=== PATIENT | male | born 1950 | race Caucasian/White ===

== ENCOUNTER → 2017-06-14 | Outpatient (CLI) | payer BC, MEDICARE ==
[2017-06-14 10:11] LABS: ALANINE AMINOTRANSFERASE 20 U/L (21-72); ANION GAP 13 (5-19); BLOOD UREA NITROGEN 14 mg/dL (7-20); CALCIUM 9.4 mg/dL (8.4-10.2); CARBON DIOXIDE 24 mmol/L (22-30); CHLORIDE 107 mmol/L (98-107); CREATININE RESULT 1.11 mg/dL (0.52-1.25); GLUCOSE 98 mg/dL (75-110); POTASSIUM 4.6 mmol/L (3.6-5.0)
[2017-06-14 10:42] LABS: CHOLESTEROL 153.72 mg/dL (0-200); Direct HDL 46 mg/dL (>40); TRIGLYCERIDES 97 mg/dL (<150)
[2017-06-14 10:53] LABS: DIRECT LDL 87 mg/dL (<100)
== END ==
LOC: OD 08:17
PROVIDERS: ATTEND Family Medicine
DX: E78.2 Mixed hyperlipidemia (principal); I10 Essential (primary) hypertension; Z12.5 Encounter for screening for malignant neoplasm of prostate; Z79.899 Other long term (current) drug therapy
CPT/HCPCS: 36415; 84460; 84443; 80048; 83036; 80061; G0103

== ENCOUNTER → 2019-03-13 | Outpatient (CLI) | payer MEDICARE, OTHER ==
[2019-03-13 10:26] LABS: ALANINE AMINOTRANSFERASE 16 U/L (21-72); ALBUMIN 4.1 g/dL (3.5-5.0); ALKALINE PHOSPHATASE 53 U/L (38-126); ANION GAP 10 (5-19); ASPARTATE AMINO TRANSFERASE 16 U/L (17-59); BILIRUBIN,DIRECT 0.4 mg/dL (0.0-0.4); BLOOD UREA NITROGEN 16 mg/dL (7-20); CALCIUM 9.6 mg/dL (8.4-10.2); CARBON DIOXIDE 24 mmol/L (22-30); CHLORIDE 106 mmol/L (98-107); CHOLESTEROL 135.34 mg/dL (0-200); GLUCOSE 108 mg/dL (75-110); POTASSIUM 4.8 mmol/L (3.6-5.0); TOTAL PROTEIN 7.2 g/dL (6.3-8.2); TRIGLYCERIDES 100 mg/dL (<150)
[2019-03-13 10:37] LABS: DIRECT LDL 78 mg/dL (<100)
== END ==
LOC: OD 08:48
PROVIDERS: ATTEND Family Medicine
DX: E78.2 Mixed hyperlipidemia (principal); I10 Essential (primary) hypertension; Z79.899 Other long term (current) drug therapy; R39.12 Poor urinary stream; R35.1 Nocturia
CPT/HCPCS: 36415; 80048; 80061; 80076; 83036; 84153; 84443

== ENCOUNTER → 2020-03-19 | Outpatient (CLI) | payer MEDICARE, OTHER ==
[2020-03-19 10:42] LABS: ALBUMIN 4.2 g/dL (3.5-5.0); ALKALINE PHOSPHATASE 48 U/L (38-126); ANION GAP 7 (5-19); ASPARTATE AMINO TRANSFERASE 19 U/L (17-59); BILIRUBIN,DIRECT 0.1 mg/dL (0.0-0.4); BILIRUBIN,TOTAL 0.8 mg/dL (0.2-1.3); BLOOD UREA NITROGEN 14 mg/dL (7-20); CALCIUM 9.5 mg/dL (8.4-10.2); CARBON DIOXIDE 24 mmol/L (22-30); CHLORIDE 107 mmol/L (98-107); CHOLESTEROL 148.79 mg/dL (0-200); GLUCOSE 102 mg/dL (75-110); POTASSIUM 4.3 mmol/L (3.6-5.0); TOTAL PROTEIN 7.3 g/dL (6.3-8.2); TRIGLYCERIDES 134 mg/dL (<150)
[2020-03-19 11:00] LABS: DIRECT LDL 93 mg/dL (<100)
== END ==
LOC: OD 08:48
PROVIDERS: ATTEND Family Medicine
DX: E78.2 Mixed hyperlipidemia (principal); I10 Essential (primary) hypertension; R35.1 Nocturia; R39.12 Poor urinary stream; Z79.899 Other long term (current) drug therapy
CPT/HCPCS: 36415; 80048; 80061; 80076; 83036; 84153; 84443

== ENCOUNTER 2020-05-20 11:24 | Day surgery (SDC) | payer MEDICARE, OTHER ==
[2020-05-20 12:40] LABS: INTERNATIONAL RATION (INR) 0.99; PROTHROMBIN TIME 13.3 SEC (11.4-15.4)
[2020-05-20 12:41] LABS: HEMATOCRIT 43.1 % (37.9-51.0); HEMOGLOBIN 14.5 g/dL (13.5-17.0); MEAN CORPUSCULAR HEMOGLOBIN 29.6 pg (27.0-33.4); MEAN CORPUSCULAR HGB CONC 33.7 g/dL (32.0-36.0); MEAN CORPUSCULAR VOLUME 88 fl (80-97); PARTIAL THROMBOPLASTIN TIME 34.2 SEC (23.5-35.8); PLATELET COUNT 459 10^3/uL (150-450); RED BLOOD COUNT 4.91 10^6/uL (4.35-5.55); RED CELL DISTRIBUTION WIDTH 13.5 % (11.5-14.0); WHITE BLOOD COUNT 17.6 10^3/uL (4.0-10.5)
[2020-05-20 13:05] LABS: BLOOD UREA NITROGEN 16 mg/dL (7-20)
--- NOTE | 2020-05-20 14:36 | RADIOLOGY REPORT (SQ) ---
EXAM DESCRIPTION: U/S THORACENTESIS WITH IMAGING IMAGES COMPLETED DATE/TIME: 05/20/2020 1:58 pm REASON FOR STUDY: PLEURAL EFFUSION J90 PLEURAL EFFUSION, NOT ELSEWHERE CLASSIFIED Z79.01 LONG-TERM (CURRENT) USE OF ANTICOAGULANTS Z79.899 OTHER LONG-TERM (CURRENT) DRUG THERAPY COMPARISON: 05/10/2020 thoracentesis. RADIATION DOSE: None LIMITATIONS: None. PROCEDURE: Procedure, risks, benefit, and alternative explained to patient who then gave written con sent. The posterior right chest wall was marked using ultrasound guidance. A time-out was called fo r correct marking verification. Chest prepped and draped using sterile technique. Local anesthesia a chieved using 7 ml of 1% lidocaine injection. A 6fr Safe-T- Centesis set was introduced into the rig ht pleural space. Fluid was aspirated. The catheter was removed and the entry site was covered with sterile bandage. No immediate complications noted. Images acquired during the procedure were stored on PACS. FINDINGS: ENTRY SITE: posterior right chest. FLUID VOLUME: 1000 mL FLUID ANALYSIS: Pat colored fluid OTHER: Therapeutic only IMPRESSION: SUCCESSFUL THORACENTESIS USING ULTRASOUND GUIDANCE. COMMENT: Patient medication list reviewed: Yes- Quality ID# [id number]:Eligible professional attests to doc umenting in the medical record they obtained, updated, or reviewed the patient's current medications. TECHNICAL DOCUMENTATION: JOB ID: [id number] [employer]- All Rights Reserved Reading location - IP/workstation name: [email or web address] [id number]
--- NOTE | 2020-05-20 15:49 | RADIOLOGY REPORT (SQ) ---
EXAM DESCRIPTION: CHEST SINGLE VIEW IMAGES COMPLETED DATE/TIME: 05/20/2020 1:55 pm REASON FOR STUDY: RT PLEURAL EFFUSION POST THORA COMPARISON: 05/20/2020 thoracentesis EXAM PARAMETERS: NUMBER OF VIEWS: One view. TECHNIQUE: Single frontal radiographic view of the chest acquired. RADIATION DOSE: NA LIMITATIONS: None. FINDINGS: LUNGS AND PLEURA: Layering right-sided pleural effusion with compressive atelectasis of th e adjacent lung parenchyma. No focal consolidation. No pneumothorax. MEDIASTINUM AND HILAR STRUCTURES: No masses. Contour normal. HEART AND VASCULAR STRUCTURES: Heart normal in size. Normal vasculature. BONES: No acute findings. HARDWARE: None in the chest. OTHER: No other significant finding. IMPRESSION: No evidence of pneumothorax status post thoracentesis. Small right-sided pleural effusi on. TECHNICAL DOCUMENTATION: JOB ID: [id number] 2010 [employer]- All Rights Reserved Reading location - IP/workstation name: [email or web address]
--- NOTE | 2020-05-20 16:27 | RADIOLOGY REPORT (SQ) ---
EXAM DESCRIPTION: CHEST SINGLE VIEW IMAGES COMPLETED DATE/TIME: 05/20/2020 3:00 pm REASON FOR STUDY: RT PLEURAL EFFUSION POST THOR COMPARISON: Same date 1355 hours. EXAM PARAMETERS: NUMBER OF VIEWS: One view. TECHNIQUE: Single frontal radiographic view of the chest acquired. RADIATION DOSE: NA LIMITATIONS: None. FINDINGS: LUNGS AND PLEURA: Small right pleural effusion with compressive atelectasis at the right l monica base. The left lung is clear. No pneumothorax. MEDIASTINUM AND HILAR STRUCTURES: No masses. Contour normal. HEART AND VASCULAR STRUCTURES: Heart normal in size. Normal vasculature. BONES: No acute findings. HARDWARE: None in the chest. OTHER: No other significant finding. IMPRESSION: Stable small right pleural effusion with compressive atelectasis the right lung base. N o pneumothorax. TECHNICAL DOCUMENTATION: JOB ID: [id number] 2010 [employer]- All Rights Reserved Reading location - IP/workstation name: [id number]
[2020-05-20 17:48] VITALS: BP 140/93
== END 2020-05-20 16:35 | disposition home or self-care (01) ==
LOC: RAD 11:24
PROVIDERS: ATTEND Internal Medicine Pulmonary Disease
DX: J90 Pleural effusion, not elsewhere classified (principal); R91.8 Other nonspecific abnormal finding of lung field; J44.9 Chronic obstructive pulmonary disease, unspecified; R06.02 Shortness of breath; R09.02 Hypoxemia; Z79.899 Other long term (current) drug therapy; Z87.891 Personal history of nicotine dependence; Z99.81 Dependence on supplemental oxygen
CPT/HCPCS: 32555; 36415; 71045; 82565; 84520; 85027; 85610; 85730

== ENCOUNTER 2020-05-27 02:13 | Inpatient (IN) | payer MEDICARE, OTHER ==
[2020-05-27] MEDS ORDERED: IPRATROPIUM/ALBUTEROL 0.5-2.5 MG/3 ML AMPUL NEB ONE (02:44)
--- NOTE | 2020-05-27 02:48 | ER Document Report ---
ED Respiratory Problem - General Stated Complaint: SHORTNESS OF BREATH Time Seen by Provider: 05/27/20 02:37 Notes: Patient is a 69-year-old male that comes to the emergency department for chief complaint of difficulty breathing. He states that 4 days ago he had a thor acentesis to drain a right pleural effusion secondary to a right lung mass that he is currently being worked up for. He has a history of smoking, COPD, former smoker, on 2 L nasal cannula but he states he had to increase it to 3 L tonight because he could not breathe. He states that if he does not move he feels okay but if he tries to walk just a few feet he is completely out of breath. He mari es fever, cough, chest pain. He is not on chemotherapy or radiation yet, he is following with [facility] primary care and oncology. TRAVEL OUTSIDE OF THE [place] IN LAST 30 DAYS: No - Related Data Allergies/Adverse Reactions: No Known Allergies Allergy (Unverified 05/20/20 12:11) Past Medical History - General Information source: Patient - Social History Smoking Status: Former Smoker Frequency of alcohol use: None Drug Abuse: None Lives with: Family Family History: Reviewed & Not Pertinent - Past Medical History Cardiac Medical History: Reports: Hx Hypertension - on meds Denies: Hx Coronary Artery Disease, Hx Heart Attack Pulmonary Medical History: Reports: Hx COPD - hx pleural effusion 5 days ago Denies: Hx Asthma, Hx Bronchitis, Hx Pneumonia Neurological Medical History: Denies: Hx Cerebrovascular Accident, Hx Seizures Musculoskeletal Medical History: Denies Hx Arthritis - Immunizations Hx Diphtheria, Pertussis, Tetanus Vaccination: Yes Review of Systems - Review of Systems Constitutional: No symptoms reported EENT: No symptoms reported Cardiovascular: See HPI Respiratory: See HPI Gastrointestinal: No symptoms reported Genitourinary: No symptoms reported Male Genitourinary: No symptoms reported Musculoskeletal: No symptoms reported Skin: No symptoms reported Hematologic/Lymphatic: No symptoms reported Neurological/Psychological: No symptoms reported Physical Exam - Vital signs Vitals: Resp Pulse Ox 17 95 05/27/20 03:45 05/27/20 03:45 - Notes Notes: GENERAL: Alert, interacts well. HEAD: Normocephalic, atraumatic. EYES: Pupils equal, round, and reactive to light. Extraocular movements intact. ENT: Oral mucosa moist, tongue midline. Oropharynx unremarkable. Airway patent. NECK: Full range of motion. Supple. Trachea midline. No lymphadenopathy. LUNGS: Expiratory wheezes throughout, decreased breath sounds on the general right lung, patient becomes easily dyspneic but at rest does not appear to be in distress. No labored breathing at rest. HEART: Regular rate and rhythm. No murmur ABDOMEN: Soft, non-tender. Non-distended. EXTREMITIES: Moves all 4 extremities spontaneously. No edema, normal radial and dorsalis pedis pulses bilaterally. No cyanosis. BACK: no cervical, thoracic, lumbar midline tenderness. No saddle anesthesia, normal distal neurovascular exam. Moves all extremities in full range of motion. NEUROLOGICAL: Alert and oriented x3. Normal speech. Cranial nerves II through XI I grossly intact. Strength 5/5 in all extremities. PSYCH: Normal affect, normal mood. SKIN: Warm, dry, normal turgor. No rashes or lesions noted. Course - Re-evaluation Re-evalutation: Patient with faint expiratory wheezes, decreased breath sounds on the right at rest on his oxygen he is doing well without hypoxia or distress but he can barely move at all without significant dyspnea. He does not have a fever, he is not tachycardic. Chest x-ray shows right-sided effusion with consolidation. Laboratory work-up had a significant delay, chemistry unremarkable, troponin is not elevated, BNP is not elevated. CBC shows leukocytosis with greater than 20,000 with 2% bands. Patient has had a recent hospitalization and thoracentesis, therefore patient was covered with vancomycin and cefepime for suspected hospital-acquired [facility]. He also might have postobstructive pneumonia. In addition to this with his dyspnea on exertion he may have pulmonary embolism along with his cancer diagnosis. We have no good data on this patient, he usually is at [facility], therefore after discussion CTA will be performed. 05/27/20 CTA shows left-sided pulmonary embolus, cannot rule out small or tiny peripheral ones, no saddle emboli. Suspicious for malignancy as patient is already aware of, large pleural effusion. Patient will require hospitalization for the large pleural effusion with possible need of thoracentesis and even a drain because of recurrence, anticoagulation for pulmonary emboli. Discussed with Dr. Martinez. Discussed with patient in detail. He states understanding and agreement. I spoke with Aliya Fortune NP, patient will be accepted to telemetry observation. - Vital Signs Vital signs: Temp Pulse Resp BP Pulse Ox 98.3 F 25 H 136/77 H 96 05/27/20 04:08 05/27/20 08:02 05/27/20 08:02 05/27/20 08:02 - Laboratory Result Diagrams: 05/27/20 04:44 05/27/20 04:44 Laboratory results interpreted by me: 05/27/20 05/27/20 05/27/20 04:44 04:44 04:44 WBC 20.7 H Plt Count 481 H Seg Neuts % (Manual) 81 H Band Neutrophils % 2 L Lymphocytes % (Manual) 11 L Abs Neuts (Manual) 17.2 H NT-Pro-B Natriuret Pep 162 H Total Protein 5.9 L Albumin 3.0 L - EKG Interpretation by Me Additional EKG results interpreted by me: EKG shows sinus rhythm at a rate of 92, normal axis, QTC 441, no T wave inversions or ST segment changes in consecutive leads. Discharge - Discharge Clinical Impression: Pleural effusion, right, Dyspnea on exertion Acute pulmonary embolism Qualifiers: Pulmonary embolism type: unspecified Acute cor pulmonale presence: without acute cor pulmonale Qualified Code(s): I26.99 - Other pulmonary embolism without acute cor pulmonale Lung malignancy Qualifiers: Laterality: right Lung location: lower lobe of lung Qualified Code(s): C34.31 - Malignant neoplasm of lower lobe, right bronchus or lung Condition: Stable Disposition: ADMITTED INPATIENT Admitting Provider: Yohana (Hospitalist) Unit Admitted: Telemetry
--- NOTE | 2020-05-27 04:04 | RADIOLOGY REPORT (SQ) ---
EXAM DESCRIPTION: XR CHEST 1 VIEW COMPLETED DATE/TME: 05/27/2020 02:45 CLINICAL HISTORY: 69 years, Male, shortness of breath; dec sounds on the right COMPARISON: 05/20/2020 NUMBER OF VIEWS: One TECHNIQUE: AP view the chest LIMITATIONS: None. FINDINGS: Moderate to large right pleural effusion, increased in size compared to the prior with associated right basilar airspace opacity. The left lung is clear. Right heart border is obscured. There is no pneumothorax. Bones are unchanged. IMPRESSION: Moderate to large right pleural effusion, increased in size compared to the prior with associated airspace disease. copyright 2010 [employer]- All Rights Reserved
[2020-05-27 04:58] LABS: VENOUS BLOOD BASE EXCESS 0.1 mmol/L; VENOUS BLOOD HCO3 25.3 mmol/L (20-32); VENOUS BLOOD PCO2 42.7 mmHg (35-63); VENOUS BLOOD PH 7.39 (7.30-7.42)
[2020-05-27 05:14] LABS: ALKALINE PHOSPHATASE 73 U/L (38-126); ANION GAP 9 (5-19); ASPARTATE AMINO TRANSFERASE 19 U/L (17-59); BILIRUBIN,DIRECT 0.3 mg/dL (0.0-0.4); BILIRUBIN,TOTAL 0.5 mg/dL (0.2-1.3); BLOOD UREA NITROGEN 11 mg/dL (7-20); CALCIUM 8.5 mg/dL (8.4-10.2); CARBON DIOXIDE 26 mmol/L (22-30); CHLORIDE 104 mmol/L (98-107); GLUCOSE 109 mg/dL (75-110); POTASSIUM 4.1 mmol/L (3.6-5.0); TOTAL PROTEIN 5.9 g/dL (6.3-8.2)
[2020-05-27 05:15] LABS: HEMATOCRIT 42.6 % (37.9-51.0); HEMOGLOBIN 14.2 g/dL (13.5-17.0); MEAN CORPUSCULAR HEMOGLOBIN 29.3 pg (27.0-33.4); MEAN CORPUSCULAR HGB CONC 33.4 g/dL (32.0-36.0); MEAN CORPUSCULAR VOLUME 88 fl (80-97); PLATELET COUNT 481 10^3/uL (150-450); RED BLOOD COUNT 4.86 10^6/uL (4.35-5.55); RED CELL DISTRIBUTION WIDTH 12.9 % (11.5-14.0); WHITE BLOOD COUNT 20.7 10^3/uL (4.0-10.5)
[2020-05-27 05:24] LABS: NT PRO BNP 162 pg/mL (<125)
[2020-05-27 05:26] LABS: TROPONIN I < 0.012 ng/mL
[2020-05-27 05:44] LABS: ABSOLUTE LYMPHOCYTES# (MANUAL) 2.3 10^3/uL (0.5-4.7); BAND NEUTROPHILS % (MANUAL) 2 % (3-5); BASOPHILS % (MANUAL) 0 % (0-2); EOSINOPHILS % (MANUAL) 1 % (0-6); LYMPHOCYTES % (MANUAL) 11 % (13-45); MONOCYTES % (MANUAL) 5 % (3-13); SEGMENTED NEUTROPHILS % (MAN) 81 % (42-78); TOTAL CELLS COUNTED 100
[2020-05-27 05:45] LABS: BURR CELLS SLIGHT; OVALOCYTES SLIGHT; PLATELET COMMENT ADEQUATE; POIKILOCYTOSIS SLIGHT; TEAR DROP CELLS SLIGHT; TOXIC GRANULATION 1+
[2020-05-27] MEDS ORDERED: VANCOMYCIN HCL INJ 1000 MG VIAL IV ONE ×2 (05:55→09:00)
[2020-05-27] MEDS ORDERED: CEFEPIME 2 GM/D5W RTU 2 GM/50 ML RTUPB IV ONE (05:55)
--- NOTE | 2020-05-27 07:59 | RADIOLOGY REPORT (SQ) ---
EXAM: CT Angiography Chest With Intravenous Contrast EXAM DATE/TIME: 05/27/2020 7:02 AM CLINICAL HISTORY: The patient is 69 years old and is Male; eval effusion, pneumonia. CREAT 0.76 TECHNIQUE: Axial computed tomographic angiography images of the chest with intravenous contrast. Sagittal and coronal reformatted images were created and reviewed. This CT exam was performed using one or more of the following dose reduction techniques: automated exposure control, adjustment of the mA and/or kV according to patient size, and/or use of iterative reconstruction technique. MIP reconstructed images were created and reviewed. COMPARISON: Chest radiograph from 05/27/2020 FINDINGS: ARTIFACTS: The exam is suboptimal secondary to motion artifact. LIMITATIONS: The posterior aspect of the right lung base is incompletely imaged. PULMONARY ARTERIES: There is no embolus within the main pulmonary arteries. The peripheral pulmonary arteries, beginning at the segmental level, are suboptimally visualized on this exam due to artifact. However, there is an apparent subsegmental pulmonary embolus at the level of the left upper lobe (series 3, image 48). AORTA: No acute findings. No thoracic aortic aneurysm or dissection. LUNGS: Moderate to severe centrilobular emphysematous changes in the upper lungs. There is near complete collapse of the right middle and right lower lobes. There is also atelectasis involving the majority of the right upper lobe. The collapsed parenchyma of the right lung is slightly heterogeneous, primarily in the right lower lobe. No discrete mass appreciated within the lungs on this exam. There is minimal dependent atelectasis in the left lung. An irregular, somewhat linear density visualized in the left upper lobe is favored to represent scarring. PLEURAL SPACE: Large right pleural effusion. This appears slightly loculated along the right heart border. In addition, there are areas of slight nodular appearing pleural thickening, most prominent at the right lung base, which are worrisome for malignancy. No pneumothorax. MEDIASTINUM: There is mild leftward deviation of the mediastinal structures secondary to mass effect from the large right pleural effusion. Associated slight leftward displacement and mild narrowing of the distal trachea. The mainstem bronchi are patent. HEART: No significant cardiomegaly. No pericardial effusion. There is increased RV/LV ratio, suggesting right ventricular strain. BONES/JOINTS: Mild degenerative changes of the spine. No acute fracture. No dislocation. SOFT TISSUES: Unremarkable. LYMPH NODES: No significant lymph node enlargement. IMPRESSION: 1. Subsegmental pulmonary embolus in the left upper lobe. Additional peripheral pulmonary emboli are difficult to exclude secondary to artifact. There is no central pulmonary embolism visualized. 2. Large right pleural effusion. In addition, there are areas of pleural thickening and nodularity in the right hemithorax, worrisome for malignancy. This pleural thickening is most prominent at the right lung base, which is incompletely imaged. 3. Compressive atelectasis in the right lung, with near complete collapse of the right middle and lower lobes.
[2020-05-27] MEDS ORDERED: HEPARIN SOD (PORCINE) 1,000 UNIT/ML 10 ML VIAL IV ONE ×2 (08:06→10:43)
[2020-05-27] MEDS ORDERED: HEPARIN SODIUM,PORCINE/D5W 25,000 UNIT/250 ML RTUINJ IV PRN (08:06)
[2020-05-27 08:31] LABS: INTERNATIONAL RATION (INR) 1.04; PROTHROMBIN TIME 13.9 SEC (11.4-15.4)
[2020-05-27 08:32] LABS: PARTIAL THROMBOPLASTIN TIME 37.1 SEC (23.5-35.8)
[2020-05-27] MEDS ORDERED: GLUCAGON,HUMAN RECOMB 1 MG INJ SUBCUT PRN (09:43)
[2020-05-27] MEDS ORDERED: DEXTROSE 40% GEL 15 GM TUBE PO PRN ×2 (09:43)
[2020-05-27] MEDS ORDERED: ALBUTEROL SULFATE 0.083% NEB 2.5 MG/3 ML AMPUL NEB PRN (09:43)
[2020-05-27] MEDS ORDERED: DEXTROSE 50%-WATER 25 GM/50 ML DISP.SYRIN IV PRN ×2 (09:43)
[2020-05-27] MEDS ORDERED: ACETAMINOPHEN 325 MG TABLET PO PRN (09:54)
[2020-05-27] MEDS ORDERED: MAG HYDROX/AL HYDROX/SIMETH SUSP 30 ML UDCUP PO PRN (09:54)
[2020-05-27] MEDS ORDERED: ONDANSETRON HCL INJ/PF 4 MG/2 ML SDV IV PRN (09:54)
[2020-05-27] MEDS: FAMOTIDINE 20 MG TABLET PO SCH ×2 (10:05→21:36)
--- NOTE | 2020-05-27 10:13 | EKG REPORT ---
SEVERITY:- BORDERLINE ECG - SINUS RHYTHM BORDERLINE T ABNORMALITIES, ANT-LAT LEADS : Confirmed by: Ofelia Herzog MD 27-May-2020 10:12:58
--- NOTE | 2020-05-27 10:30 | RADIOLOGY REPORT (SQ) ---
EXAM DESCRIPTION: CT HEAD WITHOUT IMAGES COMPLETED DATE/TIME: 05/27/2020 9:42 am REASON FOR STUDY: cancer, mets? COMPARISON: None. TECHNIQUE: Axial images acquired through the brain without intravenous contrast. Images reviewed wi th bone, brain and subdural windows. Additional sagittal and coronal reconstructions were generated. Images stored on PACS. All CT scanners at this facility use dose modulation, iterative reconstruction, and/or weight based d osing when appropriate to reduce radiation dose to as low as reasonably achievable (ALARA). [facility]: Dose Right [facility]: CareDose [facility]: Dose Right [facility]: Teradose 4D [facility]: [employer] RADIATION DOSE: CT Rad equipment meets quality standard of care and radiation dose reduction techniq ues were employed. CTDIvol: 53.2 mGy. DLP: 1044 mGy-cm. mGy. LIMITATIONS: None. FINDINGS: VENTRICLES: Prominent. CEREBRUM: No masses. No hemorrhage. No midline shift. Areas of low density in the white matter mos t likely due to chronic micro-vascular ischemic change. No evidence for acute infarction. CEREBELLUM: No masses. No hemorrhage. No alteration of density. No evidence for acute infarction. EXTRAAXIAL SPACES: Mild age-related involutional change. No fluid collections. No masses. ORBITS AND GLOBE: No intra- or extraconal masses. Normal contour of globe without masses. CALVARIUM: No fracture. PARANASAL SINUSES: No fluid or mucosal thickening. SOFT TISSUES: No mass or hematoma. OTHER: No other significant finding. IMPRESSION: MILD CHRONIC CHANGES OF ATROPHY AND MICROVASCULAR ISCHEMIA. NO ACUTE PROCESS. EVIDENCE OF ACUTE STROKE: NO. TECHNICAL DOCUMENTATION: JOB ID: [id number] Quality ID # [id number]: Final reports with documentation of one or more dose reduction techniques (e.g., Au tomated exposure control, adjustment of the mA and/or kV according to patient size, use of iterative reconstruction technique) 2010 [employer]- All Rights Reserved Reading location - IP/workstation name: [email or web address]
[2020-05-27] MEDS ORDERED: HEPARIN SOD (PORCINE) 1,000 UNIT/ML 10 ML VIAL IV PRN ×2 (11:07→13:44)
[2020-05-27] MEDS: HEPARIN SODIUM,PORCINE/D5W 25,000 UNIT/250 ML RTUINJ IV PRN (11:35)
--- NOTE | 2020-05-27 12:21 | PDOC PROGRESS REPORT ---
Subjective Progress Note for:: 05/28/20 Subjective:: Patient is a 69-year-old male with a past medical history of HTN, COPD, heavy former smoker, and recent recurrent right sided pleural effusions concerning for malignancy with planned lung biopsy at [facility] on Sunday. Patient was seen on morning rounds following Pleurx drain placement and removal of 1.2 L. He states that he is feeling much better, decreased work of breathing, although continues to be worse than his baseline. Denies fever, chills, chest pain, palpitations, orthopnea, abdominal pain, nausea vomiting or diarrhea. He has no questions or concerns at this time. No concerns per nursing. Patient's possible need Lovenox teaching prior to discharge tomorrow. Reason For Visit: RESP DISTRESS, ACUTE PE, LARGE RT PLEURAL EFFUSION Physical Exam Vital Signs: Temp Pulse Resp BP Pulse Ox 97.7 F 84 18 135/86 H 99 05/27/20 10:44 05/27/20 10:44 05/27/20 10:44 05/27/20 10:44 05/27/20 10:44 Intake & Output 05/26/20 05/27/20 05/28/20 06:59 06:59 06:59 Intake Total 50 Balance 50 Weight 80.739 kg 87.7 kg General appearance: PRESENT: no acute distress, cooperative, well-developed, well-nourished - overweight Head exam: PRESENT: atraumatic, normocephalic Eye exam: PRESENT: conjunctiva pink, EOMI, PERRLA. ABSENT: scleral icterus Mouth exam: PRESENT: moist, tongue midline Respiratory exam: PRESENT: decreased breath sounds - abscent Right Middle/Lower morgan., symmetrical, wheezes - throughout, other - supplemental oxygen via NC. ABSENT: rales, rhonchi Cardiovascular exam: PRESENT: RRR, +S1, +S2. ABSENT: diastolic murmur, rubs, systolic murmur Pulses: PRESENT: normal dorsalis pedis pul Vascular exam: PRESENT: normal capillary refill Rectal exam: PRESENT: deferred Extremities exam: PRESENT: full ROM. ABSENT: calf tenderness, clubbing, pedal edema Neurological exam: PRESENT: alert, awake, oriented to person, oriented to place, oriented to time, oriented to situation, CN II-XII grossly intact. ABSENT: motor sensory deficit Psychiatric exam: PRESENT: anxious, normal mood. ABSENT: homicidal ideation, suicidal ideation Skin exam: PRESENT: dry, intact, warm. ABSENT: cyanosis, rash Results Laboratory Results: 05/27/20 04:44 05/27/20 04:44 05/27/20 05/27/20 05/27/20 04:44 04:44 04:44 WBC 20.7 H RBC 4.86 Hgb 14.2 Hct 42.6 MCV 88 MCH 29.3 MCHC 33.4 RDW 12.9 Plt Count 481 H Seg Neutrophils % Not Reportable VBG pH 7.39 VBG pCO2 42.7 VBG HCO3 25.3 VBG Base Excess 0.1 Sodium 138.6 Potassium 4.1 Chloride 104 Carbon Dioxide 26 Anion Gap 9 BUN 11 Creatinine 0.76 Est GFR ( Amer) > 60 Glucose 109 Calcium 8.5 Total Bilirubin 0.5 AST 19 Alkaline Phosphatase 73 Total Protein 5.9 L Albumin 3.0 L 05/27/20 04:44 WBC RBC Hgb Hct MCV MCH MCHC RDW Plt Count Seg Neutrophils % VBG pH VBG pCO2 VBG HCO3 VBG Base Excess Sodium Potassium Chloride Carbon Dioxide Anion Gap BUN Creatinine Est GFR ( Amer) Glucose Calcium Total Bilirubin AST Alkaline Phosphatase Total Protein Cancelled Albumin 05/27/20 04:44 Troponin I < 0.012 NT-Pro-B Natriuret Pep 162 H Impressions: Chest X-Ray 05/27/20 02:45 IMPRESSION: Moderate to large right pleural effusion, increased in size compared to the prior with associated airspace disease. copyright 2010 [employer]- All Rights Reserved Chest/Abdomen CTA 05/27/20 05:58 IMPRESSION: 1. Subsegmental pulmonary embolus in the left upper lobe. Additional peripheral pulmonary emboli are difficult to exclude secondary to artifact. There is no central pulmonary embolism visualized. 2. Large right pleural effusion. In addition, there are areas of pleural thickening and nodularity in the right hemithorax, worrisome for malignancy. This pleural thickening is most prominent at the right lung base, which is incompletely imaged. 3. Compressive atelectasis in the right lung, with near complete collapse of the right middle and lower lobes. Head CT 05/27/20 08:02 IMPRESSION: MILD CHRONIC CHANGES OF ATROPHY AND MICROVASCULAR ISCHEMIA. NO ACUTE PROCESS. EVIDENCE OF ACUTE STROKE: NO. Assessment and Plan - Diagnosis (1) Acute pulmonary embolism Qualifiers: Pulmonary embolism type: unspecified Acute cor pulmonale presence: without acute cor pulmonale Qualified Code(s): I26.99 - Other pulmonary embolism without acute cor pulmonale Is this a current diagnosis for this admission?: Yes Plan: Admitted to tele. Continue supplemental oxygen as needed. Resume heparin drip. Will d/c on full dose Lovenox w/ instructions to hold dose x24 hours prior to appointment for Biopsy. Discharge planning consulted. (2) Pleural effusion, right Is this a current diagnosis for this admission?: Yes Plan: Currently followed by Dr. Rizo for malignancy work up. Multiple thoracentesis this week; reoccurs rapidly. Has scheduled pleurex drain and biopsy at [facility] on Sunday. Discussed w/ [facility] Hospitalist service; recommended d/c to follow up as outpatient as previous scheduled. Discussed w/ Dr. Chowdary; concerned about concurrent dx of acute PE and need for anticoagulation. s/p Pluerex drain placement; ~1L removed If BP remains stable, will drain again later this evening with follow up CXR in am to evaluate rate of reoccurance; may need additional draining over the weekend prior to biopsy appointment (HH vs ED nurse visit) Discharge planning consulted for home health services. (3) HTN (hypertension) Qualifiers: Hypertension type: essential hypertension Qualified Code(s): I10 - Essential (primary) hypertension Is this a current diagnosis for this admission?: Yes Plan: Will continue home medications; adjust as indicated. (4) COPD (chronic obstructive pulmonary disease) Is this a current diagnosis for this admission?: Yes Plan: On home O2 at 2-3 lpm Not in exacerbation at this time. Continue supplemental oxygen to maintain SpO2 >89% As needed nebulizer treatments. No indications for steroids or antibiotics at this time. - Time Time Spent with patient: 35 or more minutes Medications reviewed and adjusted accordingly: Yes Anticipated Discharge Disposition: Home with Home Health Anticipated Discharge Timeframe: within 48 hours
--- NOTE | 2020-05-27 12:45 | PDOC H&P ---
History of Present Illness Admission Date/PCP: 05/27/20 08:19 SUYAPA ALCAZAR MD Patient complains of: dyspnea History of Present Illness: BOO COLLADO is a 69 year old male with a past medical history significant for HTN, COPD, former heavy smoker (50 pack year hx), and recent recurrent right side pleural effusions. Patient recently admitted to [facility] w/ thoracentesis (800 ml removed) and bronchoscopy/biopsy on 05/10/20. Biopsy was negative. Therapeutic thoracentesis (1L removed) on 05/20/20. Scheduled to have pleurex drain placed with needle guided biopsy on 05/31/20. Patient presents to the emergency department today with complain of sudden onset dyspnea last night. Evaluation in the emergency department revealed mild tachycardia, tachypnea, maintaining SpO2 on baseline O2, leukocytosis (WBC 20.7), thrombocytosis (PLT 481), and benign coagulation and chemistry panel. CXR showed moderate to large right side pleural effusion. CTA Chest revealed subsegmental pulmonary embolus to the JOSEPH. Large right pleural effusion. Areas of pleural thickening and nodularity to the right hemithorax. Compressive atelectasis w/ near complete collapse of the right middle and lower lobes. Patient is referred to the hospitalist service for further evaluation and management. Past Medical History Cardiac Medical History: Reports: Hyperlipidema, Hypertension Denies: Coronary Artery Disease, Myocardial Infarction Pulmonary Medical History: Reports: Chronic Obstructive Pulmonary Disease (COPD), Other - recurrent pleural effusion Denies: Asthma, Bronchitis, Pneumonia Neurological Medical History: Denies: Seizures Musculoskeltal Medical History: Denies: Arthritis Psychiatric Medical History: Denies: Depression Hematology: Denies: Anemia Past Surgical History Past Surgical History: Reports: Vascular Surgery - L groin Social History Information Source: Patient Lives with: Family Smoking Status: Former Smoker Electronic Cigarette use?: No Frequency of Alcohol Use: None Hx Recreational Drug Use: No Hx Prescription Drug Abuse: No - Advance Directive Resuscitation Status: Full Code Family History Family History: Reviewed & Not Pertinent Parental Family History Reviewed: Yes Children Family History Reviewed: Yes Sibling(s) Family History Reviewed.: Yes Medication/Allergy Home Medications: Amlodipine Besylate [Norvasc 5 mg Tablet] 05/20/20 Allergies/Adverse Reactions: No Known Allergies Allergy (Unverified 05/20/20 12:11) Review of Systems Constitutional: ABSENT: chills, fever(s), headache(s), weight gain, weight loss Eyes: ABSENT: visual disturbances Ears: ABSENT: hearing changes Cardiovascular: ABSENT: chest pain, dyspnea on exertion, edema, orthropnea, palpitations Respiratory: PRESENT: dyspnea. ABSENT: cough, hemoptysis Gastrointestinal: ABSENT: abdominal pain, constipation, diarrhea, hematemesis, hematochezia, nausea, vomiting Genitourinary: ABSENT: dysuria, hematuria Musculoskeletal: ABSENT: joint swelling Integumentary: ABSENT: rash, wounds Neurological: ABSENT: abnormal gait, abnormal speech, confusion, dizziness, focal weakness, syncope Psychiatric: ABSENT: anxiety, depression, homidical ideation, suicidal ideation Endocrine: ABSENT: cold intolerance, heat intolerance, polydipsia, polyuria Hematologic/Lymphatic: ABSENT: easy bleeding, easy bruising Physical Exam Vital Signs: Temp Pulse Resp BP Pulse Ox 97.7 F 84 18 135/86 H 99 05/27/20 10:44 05/27/20 10:44 05/27/20 10:44 05/27/20 10:44 05/27/20 10:44 Intake & Output 05/26/20 05/27/20 05/28/20 06:59 06:59 06:59 Intake Total 50 Balance 50 Weight 80.739 kg 87.7 kg General appearance: PRESENT: no acute distress, cooperative, well-developed, well-nourished, other - overweight Head exam: PRESENT: atraumatic, normocephalic Eye exam: PRESENT: conjunctiva pink, EOMI, PERRLA. ABSENT: scleral icterus Mouth exam: PRESENT: moist, tongue midline Respiratory exam: PRESENT: clear to auscultation corona, decreased breath sounds - absent right side, symmetrical, other - supplemental oxygen via NC. ABSENT: rales, rhonchi, wheezes Cardiovascular exam: PRESENT: RRR, +S1, +S2. ABSENT: diastolic murmur, rubs, systolic murmur Vascular exam: PRESENT: normal capillary refill GI/Abdominal exam: PRESENT: normal bowel sounds, soft. ABSENT: distended, guard ing, mass, organolmegaly, rebound, tenderness Rectal exam: PRESENT: deferred Extremities exam: PRESENT: full ROM. ABSENT: calf tenderness, clubbing, pedal edema Musculoskeletal exam: PRESENT: ambulatory Neurological exam: PRESENT: alert, awake, oriented to person, oriented to place, oriented to time, oriented to situation, CN II-XII grossly intact. ABSENT: motor sensory deficit Psychiatric exam: PRESENT: anxious, normal mood. ABSENT: homicidal ideation, suicidal ideation Skin exam: PRESENT: dry, intact, warm. ABSENT: cyanosis, rash Results Laboratory Results: 05/27/20 04:44 05/27/20 04:44 05/27/20 05/27/20 05/27/20 04:44 04:44 04:44 WBC 20.7 H RBC 4.86 Hgb 14.2 Hct 42.6 MCV 88 MCH 29.3 MCHC 33.4 RDW 12.9 Plt Count 481 H Seg Neutrophils % Not Reportable VBG pH 7.39 VBG pCO2 42.7 VBG HCO3 25.3 VBG Base Excess 0.1 Sodium 138.6 Potassium 4.1 Chloride 104 Carbon Dioxide 26 Anion Gap 9 BUN 11 Creatinine 0.76 Est GFR ( Amer) > 60 Glucose 109 Calcium 8.5 Total Bilirubin 0.5 AST 19 Alkaline Phosphatase 73 Total Protein 5.9 L Albumin 3.0 L 05/27/20 04:44 WBC RBC Hgb Hct MCV MCH MCHC RDW Plt Count Seg Neutrophils % VBG pH VBG pCO2 VBG HCO3 VBG Base Excess Sodium Potassium Chloride Carbon Dioxide Anion Gap BUN Creatinine Est GFR ( Amer) Glucose Calcium Total Bilirubin AST Alkaline Phosphatase Total Protein Cancelled Albumin 05/27/20 04:44 Troponin I < 0.012 NT-Pro-B Natriuret Pep 162 H Impressions: Chest X-Ray 05/27/20 02:45 IMPRESSION: Moderate to large right pleural effusion, increased in size compared to the prior with associated airspace disease. copyright 2011 [email or web address]- All Rights Reserved Chest/Abdomen CTA 05/27/20 05:58 IMPRESSION: 1. Subsegmental pulmonary embolus in the left upper lobe. Additional peripheral pulmonary emboli are difficult to exclude secondary to artifact. There is no central pulmonary embolism visualized. 2. Large right pleural effusion. In addition, there are areas of pleural thickening and nodularity in the right hemithorax, worrisome for malignancy. This pleural thickening is most prominent at the right lung base, which is incompletely imaged. 3. Compressive atelectasis in the right lung, with near complete collapse of the right middle and lower lobes. Head CT 05/27/20 08:02 IMPRESSION: MILD CHRONIC CHANGES OF ATROPHY AND MICROVASCULAR ISCHEMIA. NO ACUTE PROCESS. EVIDENCE OF ACUTE STROKE: NO. Assessment and Plan - Diagnosis (1) Acute pulmonary embolism Qualifiers: Pulmonary embolism type: unspecified Acute cor pulmonale presence: without acute cor pulmonale Qualified Code(s): I26.99 - Other pulmonary embolism without acute cor pulmonale Is this a current diagnosis for this admission?: Yes Plan: Admitted to tele. Continue supplemental oxygen as needed. Heparin gtt; place on hold at 5 am for planed pleurex drain placement. Will d/c on full dose Lovenox w/ instructions to hold dose x24 hours prior to appointment for Biopsy. Discharge planning consulted. (2) Pleural effusion, right Is this a current diagnosis for this admission?: Yes Plan: Currently followed by Dr. Rizo for malignancy work up. Multiple thoracentesis this week; reoccurs rapidly. Has scheduled pleurex drain and biopsy at [facility] on Sunday. Discussed w/ [facility] Hospitalist service; recommended d/c to follow up as outpatient as previous scheduled. Discussed w/ Dr. Chowdary; concerned about concurrent dx of acute PE and need for anticoagulation. Will arrange for in-house pleurex placement. Scheduled for tomorrow morning. Heparin gtt to be placed on Hold at 5 am. NPO after midnight. Discharge planning consulted for home health services. (3) HTN (hypertension) Qualifiers: Hypertension type: essential hypertension Qualified Code(s): I10 - Essential (primary) hypertension Is this a current diagnosis for this admission?: Yes Plan: Will continue home medications; adjust as indicated. (4) COPD (chronic obstructive pulmonary disease) Is this a current diagnosis for this admission?: Yes Plan: On home O2 at 2-3 lpm Not in exacerbation at this time. Continue supplemental oxygen to maintain SpO2 >89% As needed nebulizer treatments. No indications for steroids or antibiotics at this time. - Time Time Spent with patient: 35 or more minutes Medications reviewed and adjusted accordingly: Yes Anticipated Discharge Disposition: Home with Home Health Anticipated Discharge Timeframe: within 72 hours
[2020-05-27] MEDS: NORMAL SALINE 1000 ML 1,000 ML IV PRN (13:19)
[2020-05-28] MEDS: NORMAL SALINE 1000 ML 1,000 ML IV PRN ×2 (02:39→16:55)
[2020-05-28 06:29] LABS: HEMATOCRIT 38.4 % (37.9-51.0); HEMOGLOBIN 12.9 g/dL (13.5-17.0); MEAN CORPUSCULAR HEMOGLOBIN 29.3 pg (27.0-33.4); MEAN CORPUSCULAR HGB CONC 33.5 g/dL (32.0-36.0); MEAN CORPUSCULAR VOLUME 88 fl (80-97); PLATELET COUNT 435 10^3/uL (150-450); RED BLOOD COUNT 4.39 10^6/uL (4.35-5.55); RED CELL DISTRIBUTION WIDTH 13.2 % (11.5-14.0); WHITE BLOOD COUNT 20.9 10^3/uL (4.0-10.5)
[2020-05-28 06:42] LABS: ANION GAP 6 (5-19); BLOOD UREA NITROGEN 9 mg/dL (7-20); CALCIUM 8.1 mg/dL (8.4-10.2); CARBON DIOXIDE 27 mmol/L (22-30); CHLORIDE 106 mmol/L (98-107); GLUCOSE 100 mg/dL (75-110); POTASSIUM 4.4 mmol/L (3.6-5.0)
[2020-05-28 06:46] LABS: ABSOLUTE LYMPHOCYTES# (MANUAL) 1.5 10^3/uL (0.5-4.7); ABSOLUTE MONOCYTES # (MANUAL) 1.5 10^3/uL (0.1-1.4); BAND NEUTROPHILS % (MANUAL) 2 % (3-5); BASOPHILS % (MANUAL) 0 % (0-2); EOSINOPHILS % (MANUAL) 1 % (0-6); LYMPHOCYTES % (MANUAL) 7 % (13-45); MONOCYTES % (MANUAL) 7 % (3-13); SEGMENTED NEUTROPHILS % (MAN) 83 % (42-78); TOTAL CELLS COUNTED 100
[2020-05-28 06:47] LABS: PLATELET COMMENT ADEQUATE; RBC MORPHOLOGY COMMENT NORMO-CYTIC/CHROMIC
[2020-05-28 07:51] LABS: APPEARANCE,URINE CLEAR; BILIRUBIN,URINE NEGATIVE (NEGATIVE); COLOR,URINE YELLOW; GLUCOSE, URINE NEGATIVE (NEGATIVE); KETONES,URINE TRACE mg/dL (NEGATIVE); LEUKOCYTE ESTERASE,URINE NEGATIVE (NEGATIVE); NITRITE,URINE NEGATIVE (NEGATIVE); PROTEIN,URINE NEGATIVE (NEGATIVE); URINE SPECIFIC GRAVITY 1.013
[2020-05-28 08:21] LABS: ADD MANUAL MICROSCOPIC YES; RBC,URINE NONE SEEN /HPF; WBC,URINE NONE SEEN /HPF
[2020-05-28] MEDS ORDERED: FENTANYL CITRATE INJ/PF 100 MCG/2 ML AMPUL ONE (08:58)
[2020-05-28] MEDS: FAMOTIDINE 20 MG TABLET PO SCH ×2 (10:06→21:01)
[2020-05-28] MEDS: HEPARIN SODIUM,PORCINE/D5W 25,000 UNIT/250 ML RTUINJ IV PRN (10:47)
[2020-05-28] MEDS ORDERED: IPRATROPIUM/ALBUTEROL 0.5-2.5 MG/3 ML AMPUL NEB ONE (11:13)
[2020-05-28 11:34] LABS: FLUID APPEARANCE CLOUDY; FLUID COLOR RED; FLUID SOURCE LUNG; FLUID TYPE PLEURAL; FLUID VISCOSITY LIQUID
--- NOTE | 2020-05-28 12:45 | RADIOLOGY REPORT (SQ) ---
EXAM DESCRIPTION: CHEST SINGLE VIEW IMAGES COMPLETED DATE/TIME: 05/28/2020 12:11 pm REASON FOR STUDY: PLEUVAX PLACEMENT COMPARISON: AP view of the chest from 05/27/2020. EXAM PARAMETERS: NUMBER OF VIEWS: One view. TECHNIQUE: An AP view of the chest was obtained. RADIATION DOSE: NA LIMITATIONS: None. FINDINGS: LUNGS AND PLEURA: The newly placed PleurX catheter projects within the inferior aspect of the .right hemithorax. The amount of fluid in the right pleural space has decreased. There is no pn eumothorax. MEDIASTINUM AND HILAR STRUCTURES: Stable mediastinal and hilar contours. HEART AND VASCULAR STRUCTURES: The cardiac silhouette is partially obscured. BONES: No acute findings. HARDWARE: As above. OTHER: No other finding. IMPRESSION: The newly placed PleurX catheter projects within the inferior aspect of the .right hemit horax. The amount of fluid in the right pleural space has decreased. TECHNICAL DOCUMENTATION: JOB ID: [id number] 2010 [employer]- All Rights Reserved Reading location - IP/workstation name: [email or web address]
--- NOTE | 2020-05-28 17:03 | RADIOLOGY REPORT (SQ) ---
EXAM DESCRIPTION: CT GUIDED PERCUT DRAIN W/CATH IMAGES COMPLETED DATE/TIME: 05/28/2020 10:06 am REASON FOR STUDY: RECURRENT RIGHT PLURAL EFFU COMPARISON: CT of the chest with contrast from 05/27/2020. FLUORO TIME: 0.5 seconds. 180 images submitted to PACS. LIMITATIONS: None. PROCEDURE: The procedure, risks, benefits, and alternatives were discussed with the patient in the p reprocedural area, and all questions were answered. Informed consent was obtained verbally and in wri ting. The patient was then brought to the CT suite, positioned in the left lateral recumbent position on e CT gurney, and a time-out was performed. After that, axial images of the chest were obtained for t argeting of the fluid-filled right pleural space. Based on review of the axial images an appropriate access site was selected on the right hemithorax. The area around the selected access site was then prepped and draped with 2% chlorhexidine utilizing standard sterile technique. After that, the access site was infiltrated with 1% lidocaine and an inc ision was made perpendicular to the skin surface with a #11 blade. An 18 gauge access needle was then advanced through the skin incision and into the fluid-filled right pleural space utilizing CT fluoro scopic guidance. A 0.035 inch guidewire was subsequently inserted through the access needle and after wards the needle was removed. Attention was then turned to the anterolateral aspect of the right hemithorax ; at first a site was s elected on the skin and anesthetized with 1% lidocaine. After that, a stab incision was made at the s ite with a #11 blade in order to create an entrance to the subcutaneous tunnel. The subcutaneous tissues up to the access site into the pleural space were then infiltrated with 1% l idocaine; after that, a blunt tunneler was used to tunnel the Aspira catheter from the entrance of e subcutaneous tunnel to the access site into the fluid-filled right pleural space. The access site into the pleural space was then dilated over the 0.035 inch guidewire. After that, a peel-away sheath was advanced over the guidewire into the pleural space. The guidewire and inner dila tor of the peel-away sheath were then removed, and the PleurX catheter was advanced through the peel- away sheath into the pleural space. After that, the peel-away sheath was removed and the proper posit ion of the Aspira catheter was confirmed with repeat axial images of the chest. The PleurX catheter was then secured in place and a sterile dressing was applied over it. The patient tolerated the procedure well without immediate complication. At the end of the procedure the patient's condition was unchanged from the preprocedural baseline. IV conscious sedation was administered at the direction of the performing physician by a khadra lerner. 0 milligrams of Versed and 50 micrograms of fentanyl were administered. Physiologic monitoring was provided before, during, and after sedation. The total sedation time was 30 minutes. Documentation of [id number] time performing proceduralist spent monitoring the patient: 30 minutes. IMPRESSION: Successful CT-guided placement of a PleurX catheter into the fluid-filled right pleural space. COMMENT: Patient medication list reviewed: Yes- Quality ID# 130:Eligible professional attests to doc umenting in the medical record they obtained, updated, or reviewed the patient's current medications. Quality ID #76: The patient was prepped and draped using maximum sterile barrier technique including cap, mask, sterile gown, sterile gloves, a large sterile sheet, hand hygiene, and 2% Chlorhexidine fo r cutaneous antisepsis. When ultrasound is used, sterile ultrasound techniques are followed requiring sterile gel and sterile probes. Quality ID 145: Final reports for procedures using fluoroscopy that document radiation exposure sree harley, or exposure time and number of fluorographic images (if radiation exposure indices are not avail able) Quality ID# 436: Final reports with documentation of one or more dose reduction techniques (e.g., Aut omated exposure control, adjustment of the mA and/or kV according to patient size, use of iterative r econstruction technique) TECHNICAL DOCUMENTATION: JOB ID: [id number] 2010 [employer]- All Rights Reserved rev Reading location - IP/workstation name: [email or web address]
[2020-05-28] MEDS: IPRATROPIUM/ALBUTEROL 0.5-2.5 MG/3 ML AMPUL NEB SCH (20:26)
[2020-05-29 06:01] LABS: HEMATOCRIT 36.6 % (37.9-51.0); HEMOGLOBIN 12.4 g/dL (13.5-17.0); MEAN CORPUSCULAR HEMOGLOBIN 29.5 pg (27.0-33.4); MEAN CORPUSCULAR HGB CONC 33.8 g/dL (32.0-36.0); MEAN CORPUSCULAR VOLUME 87 fl (80-97); PLATELET COUNT 422 10^3/uL (150-450); RED BLOOD COUNT 4.19 10^6/uL (4.35-5.55); RED CELL DISTRIBUTION WIDTH 13.3 % (11.5-14.0)
[2020-05-29 06:02] LABS: ANION GAP 7 (5-19); BLOOD UREA NITROGEN 7 mg/dL (7-20); CALCIUM 7.7 mg/dL (8.4-10.2); CARBON DIOXIDE 23 mmol/L (22-30); CHLORIDE 108 mmol/L (98-107); GLUCOSE 126 mg/dL (75-110); POTASSIUM 3.8 mmol/L (3.6-5.0)
[2020-05-29] MEDS: NORMAL SALINE 1000 ML 1,000 ML IV PRN (06:28)
--- NOTE | 2020-05-29 09:06 | RADIOLOGY REPORT (SQ) ---
EXAM DESCRIPTION: CHEST SINGLE VIEW IMAGES COMPLETED DATE/TIME: 05/29/2020 8:31 am REASON FOR STUDY: dyspnea COMPARISON: 05/28/2020 EXAM PARAMETERS: NUMBER OF VIEWS: One view. TECHNIQUE: Single frontal radiographic view of the chest acquired. RADIATION DOSE: NA LIMITATIONS: None. FINDINGS: LUNGS AND PLEURA: Right pleural effusion with compressive atelectasis at the right base. Slightly improved. Minimal opacity left base. MEDIASTINUM AND HILAR STRUCTURES: No masses. Contour normal. HEART AND VASCULAR STRUCTURES: Heart normal in size. Normal vasculature. BONES: No acute findings. HARDWARE: None in the chest. OTHER: No other significant finding. IMPRESSION: Minimal improved aeration of the right base with slight decrease in the effusion. TECHNICAL DOCUMENTATION: JOB ID: [id number] 2010 [employer]- All Rights Reserved Reading location - IP/workstation name: [email or web address]
[2020-05-29] MEDS: IPRATROPIUM/ALBUTEROL 0.5-2.5 MG/3 ML AMPUL NEB SCH (09:33)
[2020-05-29] MEDS ORDERED: ENOXAPARIN SODIUM INJ 80 MG/0.8 ML DISP.SYRIN SUBCUT SCH (10:00)
[2020-05-29] MEDS: FAMOTIDINE 20 MG TABLET PO SCH (10:49)
[2020-05-29 12:37] VITALS: BP 135/86
--- NOTE | 2020-06-01 10:27 | PDOC DISCHARGE SUMMARY ---
Impression - Admit/DC Date/PCP Admission Date/Primary Care Provider: 05/27/20 16:44 SUYAPA ALCAZAR MD Discharge Date: 05/29/20 - Discharge Diagnosis (1) Acute pulmonary embolism Is this a current diagnosis for this admission?: Yes (2) Pleural effusion, right Is this a current diagnosis for this admission?: Yes (3) HTN (hypertension) Is this a current diagnosis for this admission?: Yes (4) COPD (chronic obstructive pulmonary disease) Is this a current diagnosis for this admission?: Yes - Additional Information Resuscitation Status: Full Code Discharge Diet: Cardiac Discharge Activity: Activity As Tolerated, Balance Activity w/Rest Referrals: MIQUEL CASTELLANO F/U [Other] - 05/31/20 9:00 am Prescriptions: Albuterol Sulfate [Albuterol Sulfate Hfa] 1 - 2 puff IH Q4HP PRN #1 hfa.aer.ad PRN Reason: Enoxaparin Sodium [Lovenox Inj 80 mg/0.8 ml Disp.syrin] 80 mg SUBCUT Q12 #28 disp.syrin Home Medications: Amlodipine Besylate [Norvasc 5 mg Tablet] 5 mg PO DAILY 05/20/20 Finasteride [Proscar] 5 mg PO ASDIR PRN 05/27/20 Pravastatin Sodium 80 mg PO DAILY 05/27/20 Albuterol Sulfate [Albuterol Sulfate Hfa] 1 - 2 puff IH Q4HP PRN #1 hfa.aer.ad 05/29/20 Enoxaparin Sodium [Lovenox Inj 80 mg/0.8 ml Disp.syrin] 80 mg SUBCUT Q12 #28 disp.syrin 05/29/20 History of Present Illiness History of Present Illness: BOO COLLADO is a 69 year old male with a past medical history significant for HTN, COPD, former heavy smoker (50 pack year hx), and recent recurrent right side pleural effusions. Patient recently admitted to [facility] w/ thoracentesis (800 ml removed) and bronchoscopy/biopsy on 05/10/20. Biopsy was negative. Therapeutic thoracentesis (1L removed) on 05/20/20. Scheduled to have pleurex drain placed with needle guided biopsy on 05/31/20. Patient presents to the emergency department today with complain of sudden onset dyspnea last night. Evaluation in the emergency department revealed mild tachycardia, tachypnea, maintaining SpO2 on baseline O2, leukocytosis (WBC 20.7), thrombocytosis (PLT 481), and benign coagulation and chemistry panel. CXR showed moderate to large right side pleural effusion. CTA Chest revealed subsegmental pulmonary embolus to the JOSEPH. Large right pleural effusion. Areas of pleural thickening and nodularity to the right hemithorax. Compressive atelectasis w/ near complete collapse of the right middle and lower lobes. Patient is referred to the hospitalist service for further evaluation and management. Hospital Course Hospital Course: (1) Acute pulmonary embolism Admitted to tele. Continue supplemental oxygen as needed. Patient was initially placed on a heparin drip for anticoagulation needs pending Pleurx drain. After the Pleurx drain was placed, will continue to be heparin drip overnight to ensure that patient did not develop excessive blood loss. He had no complications related to drain placement and remained hemodynamically stable. Therefore, he was transitioned to full dose Lovenox with first dose self-administered while in the hospital. He is discharged on full dose Lovenox w/ instructions to hold dose x24 hours prior to appointment for Biopsy. Discharge planning consulted to assist in arranging for home health services. (2) Pleural effusion, right Currently followed by Dr. Rizo for malignancy work up. Multiple thoracentesis this week; reoccurs rapidly. Had scheduled pleurex drain and biopsy at [facility] on Sunday. Discussed w/ [facility] Hospitalist service; recommended d/c to follow up as outpatient as previous scheduled. Discussed w/ Dr. Chowdary; concerned about concurrent dx of acute PE and need for anticoagulation. s/p Pluerex drain placement; ~3L removed dyspnea and orthopnea have now resolved. Maintaining oxygen saturations on his baseline oxygen requirement. Discussed with the patient over the course of this admission Television Operator, Dr. Roland, prior to discharge. Dr. Roland agrees with continuing Lovenox twice daily, holding midnight the night prior to his planned biopsy on Sunday. Patient is discharged home in stable condition. He has been provided a physician order form for nurse visit to the emergency department on Sunday, 05/30, should he develop worsening dyspnea so that his Pleurx drain could be accessed without necessitating another full emergency department visit/admission. He is advised to return to the emergency department as needed for any other concerning symptoms. (3) HTN (hypertension) Well-controlled with home medication regiment (4) COPD (chronic obstructive pulmonary disease) On home O2 at 2-3 lpm Not in exacerbation at this time. Continue supplemental oxygen to maintain SpO2 >89% As needed nebulizer treatments. No indications for steroids or antibiotics at this time. Physical Exam Vital Signs: Temp Pulse Resp BP Pulse Ox 97.9 F 88 22 H 135/86 H 98 05/29/20 12:35 05/29/20 12:35 05/29/20 12:35 05/29/20 12:35 05/29/20 12:35 General appearance: PRESENT: no acute distress, well-developed, well-nourished Head exam: PRESENT: atraumatic, normocephalic Eye exam: PRESENT: conjunctiva pink, EOMI, PERRLA. ABSENT: scleral icterus Mouth exam: PRESENT: moist, tongue midline Respiratory exam: PRESENT: clear to auscultation corona, decreased breath sounds - Right middle and lower lobes; improved, symmetrical, unlabored, other - Baseline oxygen requirement. ABSENT: rales, rhonchi, wheezes Cardiovascular exam: PRESENT: RRR. ABSENT: diastolic murmur, rubs, systolic murmur Vascular exam: PRESENT: normal capillary refill Extremities exam: PRESENT: full ROM. ABSENT: calf tenderness, clubbing, pedal edema Musculoskeletal exam: PRESENT: ambulatory Neurological exam: PRESENT: alert, awake, oriented to person, oriented to place, oriented to time, oriented to situation, CN II-XII grossly intact. ABSENT: motor sensory deficit Psychiatric exam: PRESENT: appropriate affect, normal mood. ABSENT: homicidal ideation, suicidal ideation Skin exam: PRESENT: dry, intact, warm. ABSENT: cyanosis, rash Results Laboratory Results: WBC 22.0 10^3/uL (4.0-10.5) H 05/29/20 05:03 RBC 4.19 10^6/uL (4.35-5.55) L 05/29/20 05:03 Hgb 12.4 g/dL (13.5-17.0) L 05/29/20 05:03 Hct 36.6 % (37.9-51.0) L 05/29/20 05:03 MCV 87 fl (80-97) 05/29/20 05:03 MCH 29.5 pg (27.0-33.4) 05/29/20 05:03 MCHC 33.8 g/dL (32.0-36.0) 05/29/20 05:03 RDW 13.3 % (11.5-14.0) 05/29/20 05:03 Plt Count 422 10^3/uL (150-450) 05/29/20 05:03 Lymph % (Auto) Not Reportable 05/28/20 06:16 [place] % (Auto) Not Reportable 05/28/20 06:16 Eos % (Auto) Not Reportable 05/28/20 06:16 Baso % (Auto) Not Reportable 05/28/20 06:16 Absolute Neuts (auto) Not Reportable 05/28/20 06:16 Absolute Lymphs (auto) Not Reportable 05/28/20 06:16 Absolute Monos (auto) Not Reportable 05/28/20 06:16 Absolute Eos (auto) Not Reportable 05/28/20 06:16 Absolute Basos (auto) Not Reportable 05/28/20 06:16 Total Counted 100 05/28/20 06:16 Seg Neutrophils % Not Reportable 05/28/20 06:16 Seg Neuts % (Manual) 83 % (42-78) H 05/28/20 06:16 Band Neutrophils % 2 % (3-5) L 05/28/20 06:16 Lymphocytes % (Manual) 7 % (13-45) L 05/28/20 06:16 Monocytes % (Manual) 7 % (3-13) 05/28/20 06:16 Eosinophils % (Manual) 1 % (0-6) 05/28/20 06:16 Basophils % (Manual) 0 % (0-2) 05/28/20 06:16 Abs Neuts (Manual) 17.8 10^3/uL (1.7-8.2) H 05/28/20 06:16 Abs Lymphs (Manual) 1.5 10^3/uL (0.5-4.7) 05/28/20 06:16 Abs Monocytes (Manual) 1.5 10^3/uL (0.1-1.4) H 05/28/20 06:16 Absolute Eos (Manual) 0.2 10^3/uL (0.0-0.6) 05/28/20 06:16 Abs Basophils (Manual) 0.0 10^3/uL (0.0-0.2) 05/28/20 06:16 Toxic Granulation 1+ 05/27/20 04:44 Platelet Comment ADEQUATE 05/28/20 06:16 Poikilocytosis SLIGHT 05/27/20 04:44 Tear Drop Cells SLIGHT 05/27/20 04:44 Ovalocytes SLIGHT 05/27/20 04:44 [place] Cells SLIGHT 05/27/20 04:44 RBC Morph Comment NORMO-CYTIC/CHROMIC 05/28/20 06:16 PT 13.9 SEC (11.4-15.4) 05/27/20 04:44 INR 1.04 05/27/20 04:44 APTT 70.3 SEC (23.5-35.8) H 05/29/20 05:03 VBG pH 7.39 (7.30-7.42) 05/27/20 04:44 VBG pCO2 42.7 mmHg (35-63) 05/27/20 04:44 VBG HCO3 25.3 mmol/L (20-32) 05/27/20 04:44 VBG Base Excess 0.1 mmol/L 05/27/20 04:44 Sodium 138.4 mmol/L (137-145) 05/29/20 05:03 Potassium 3.8 mmol/L (3.6-5.0) 05/29/20 05:03 Chloride 108 mmol/L (98-107) H 05/29/20 05:03 Carbon Dioxide 23 mmol/L (22-30) 05/29/20 05:03 Anion Gap 7 (5-19) 05/29/20 05:03 BUN 7 mg/dL (7-20) 05/29/20 05:03 Creatinine 0.76 mg/dL (0.52-1.25) 05/29/20 05:03 Est GFR ( Amer) > 60 (>60) 05/29/20 05:03 Est GFR (MDRD) Non-Af > 60 (>60) 05/29/20 05:03 Glucose 126 mg/dL (75-110) H 05/29/20 05:03 POC Glucose 116 mg/dL (70-110) H 05/27/20 10:55 Calcium 7.7 mg/dL (8.4-10.2) L 05/29/20 05:03 Total Bilirubin 0.5 mg/dL (0.2-1.3) 05/27/20 04:44 Direct Bilirubin 0.3 mg/dL (0.0-0.4) 05/27/20 04:44 Neonat Total Bilirubin Not Reportable 05/27/20 04:44 Neonat Direct Bilirubin Not Reportable 05/27/20 04:44 Neonat Indirect Bili Not Reportable 05/27/20 04:44 AST 19 U/L (17-59) 05/27/20 04:44 ALT 12 U/L (<50) 05/27/20 04:44 Alkaline Phosphatase 73 U/L (38-126) 05/27/20 04:44 Lactate Dehydrogenase 325 U/L (120-246) H 05/27/20 11:55 Troponin I < 0.012 ng/mL 05/27/20 04:44 NT-Pro-B Natriuret Pep 162 pg/mL (<125) H 05/27/20 04:44 Total Protein 5.9 g/dL (6.3-8.2) L 05/27/20 04:44 Total Protein Cancelled 05/27/20 04:44 Albumin 3.0 g/dL (3.5-5.0) L 05/27/20 04:44 Urine Color YELLOW 05/28/20 07:40 Urine Appearance CLEAR 05/28/20 07:40 Urine pH 5.0 (5.0-9.0) 05/28/20 07:40 Ur Specific [place] 1.013 05/28/20 07:40 Urine Protein NEGATIVE mg/dL (NEGATIVE) 05/28/20 07:40 Urine Glucose (UA) NEGATIVE mg/dL (NEGATIVE) 05/28/20 07:40 Urine Ketones TRACE mg/dL (NEGATIVE) H 05/28/20 07:40 Urine Blood NEGATIVE (NEGATIVE) 05/28/20 07:40 Urine Nitrite NEGATIVE (NEGATIVE) 05/28/20 07:40 Urine Bilirubin NEGATIVE (NEGATIVE) 05/28/20 07:40 Urine Urobilinogen 2.0 mg/dL (<2.0) H 05/28/20 07:40 Ur Leukocyte Esterase NEGATIVE (NEGATIVE) 05/28/20 07:40 Urine RBC NONE SEEN /HPF 05/28/20 07:40 Urine WBC NONE SEEN /HPF 05/28/20 07:40 Urine Ascorbic Acid NEGATIVE (NEGATIVE) 05/28/20 07:40 Fluid Type PLEURAL 05/28/20 09:39 Fluid Source LUNG 05/28/20 09:39 Fluid Color RED 05/28/20 09:39 Fluid Appearance CLOUDY 05/28/20 09:39 Fluid Viscosity LIQUID 05/28/20 09:39 Fluid WBC 477 /uL 05/28/20 09:39 Fluid RBC 47779 /uL 05/28/20 09:39 Fluid Seg Neutrophils 3 % 05/28/20 09:39 Fluid Lymphocytes 82 % 05/28/20 09:39 Fluid Monocytes 9 % 05/28/20 09:39 Fluid Eosinophils 6 % 05/28/20 09:39 Fluid Basophils 0 % 05/28/20 09:39 Fluid Glucose 82 mg/dL (.) 05/28/20 09:39 Fluid Total Protein 3.7 g/dL (.) 05/28/20 09:39 Fluid Albumin 2.1 g/dL (Not Estab.) 05/28/20 09:39 Fluid LDH 584 IU/L (.) 05/28/20 09:39 Fluid Amylase 14 U/L (.) 05/28/20 09:39 05/27/20 04:44 Troponin I < 0.012 NT-Pro-B Natriuret Pep 162 H Impressions: Chest X-Ray 05/27/20 02:45 IMPRESSION: Moderate to large right pleural effusion, increased in size compared to the prior with associated airspace disease. copyright 2010 [employer] All Rights Reserved Chest/Abdomen CTA 05/27/20 05:58 IMPRESSION: 1. Subsegmental pulmonary embolus in the left upper lobe. Additional peripheral pulmonary emboli are difficult to exclude secondary to artifact. There is no central pulmonary embolism visualized. 2. Large right pleural effusion. In addition, there are areas of pleural thickening and nodularity in the right hemithorax, worrisome for malignancy. This pleural thickening is most prominent at the right lung base, which is incompletely imaged. 3. Compressive atelectasis in the right lung, with near complete collapse of the right middle and lower lobes. Head CT 05/27/20 08:02 IMPRESSION: MILD CHRONIC CHANGES OF ATROPHY AND MICROVASCULAR ISCHEMIA. NO ACUTE PROCESS. EVIDENCE OF ACUTE STROKE: NO. Percutaneous Drainage 05/28/20 00:00 IMPRESSION: Successful CT-guided placement of a PleurX catheter into the fluid-filled right pleural space. Chest X-Ray 05/28/20 12:00 IMPRESSION: The newly placed PleurX catheter projects within the inferior aspect of the .right hemithorax. The amount of fluid in the right pleural space has decreased. Chest X-Ray 05/29/20 00:00 IMPRESSION: Minimal improved aeration of the right base with slight decrease in the effusion. Plan Plan of Treatment: Patient is discharged home condition, in stable condition, to the care of family members. Advised to follow-up with established oncologist as scheduled. Keep appointment at [facility] on Sunday morning. Do not eat after midnight night prior.. HE is instructed to hold Sunday evening and Sunday morning Lovenox injections in preparation for biopsy on Sunday. The patient is provided a physician order form for a nurse visit to the emergency department for 05/30/20, should he develop increased dyspnea to have Pleurx drain accessed. Take other medications as prescribed. Eat a heart healthy diet. Return to the Emergency Department, as needed, for concerning symptoms. Time Spent: Greater than 30 Minutes Stroke Is this a Stroke Patient?: No Acute Heart Failure - Is this a Heart Failure Patient?: No
== END 2020-05-29 12:50 | disposition home or self-care (01) | DRG 176 ==
LOC: ER 02:13 → EH 08:19 → INTOOBSV 08:19 → 4N 10:43 → OBSVTOIN 16:44
PROVIDERS: ADMIT Hospitalist; ATTEND Hospitalist
PROC: 0W9930Z Drainage of Right Pleural Cavity with Drainage Device, Percutaneous Approach (ICD-10-PCS; principal; 2020-05-28)
DX: I26.93 Single subsegmental thrombotic pulmonary embolism without acute cor pulmonale (principal); J90 Pleural effusion, not elsewhere classified; I10 Essential (primary) hypertension; R91.8 Other nonspecific abnormal finding of lung field; J44.9 Chronic obstructive pulmonary disease, unspecified; Z87.891 Personal history of nicotine dependence; E78.5 Hyperlipidemia, unspecified; Z88.8 Allergy status to other drugs, medicaments and biological substances; Z99.81 Dependence on supplemental oxygen
CPT/HCPCS: 36415; 70450; 71045; 71275; 75989; 80048; 80053; 81001; 82042; 82150; 82803; 82945; 82962; 83615; 83880; 84157; 84484; 85025; 85027; 85610; 85730; 87040; 87070; 87075; 87205; 88341; 88342; 89050; 93005; 93010; 94640; C1769; G0378; J0692; J1644; J1650; J3010; J3370; J7030

== ENCOUNTER 2020-06-03 12:03 | Emergency (ER) | payer MEDICARE, OTHER ==
--- NOTE | 2020-06-03 12:25 | ER Document Report ---
ED Medical Screen (RME) - General Chief Complaint: Medical Complaint Stated Complaint: TUBE ISSUES Time Seen by Provider: 06/03/20 12:18 Primary Care Provider: SUYAPA ALCAZAR MD [Primary Care Provider] - Follow up as needed Mode of Arrival: Ambulatory Information source: Patient Notes: 69-year-old male presented to ED for fluid on his lungs. He states that he was supposed to come to the emergency room to get his lung drained. I have asked the charge nurse and she did not know anything about it. I did ask Rosendo Watkins she states she did not know about it and she will be up to see them. Rosendo states that she was discharged from upstairs and they were supposed to have home health scheduled and they were supposed to have home health to take care of this with drain tubings patient states he is a former smoker does not drink or use any drugs. She does have a history of lung cancer with pleural effusion. I have greeted and performed a rapid initial assessment of this patient. A comprehensive ED assessment and evaluation of the patient, analysis of test results and completion of medical decision making process will be conducted by an additional ED providers. TRAVEL OUTSIDE OF THE [place] IN LAST 30 DAYS: No - Related Data Allergies/Adverse Reactions: No Known Allergies Allergy (Unverified 05/20/20 12:11) Past Medical History - Past Medical History Cardiac Medical History: Reports: Hx Hypercholesterolemia, Hx Hypertension Denies: Hx Coronary Artery Disease, Hx Heart Attack Pulmonary Medical History: Reports: Hx COPD Denies: Hx Asthma, Hx Bronchitis, Hx Pneumonia Neurological Medical History: Denies: Hx Cerebrovascular Accident, Hx Seizures Renal/ Medical History: Denies: Hx End Stage Renal Disease GI Medical History: Denies: Hx Gastroesophageal Reflux Disease Musculoskeltal Medical History: Denies Hx Arthritis Psychiatric Medical History: Denies: Hx Depression Past Surgical History: Reports: Hx Vascular Surgery - L groin - Immunizations Hx Diphtheria, Pertussis, Tetanus Vaccination: Yes Physical Exam - Vital signs Vitals: Temp Pulse Resp BP Pulse Ox 97.9 F 96 18 119/74 96 06/03/20 12:10 06/03/20 12:10 06/03/20 12:10 06/03/20 12:10 06/03/20 12:10 Course - Vital Signs Vital signs: Temp Pulse Resp BP Pulse Ox 97.9 F 96 18 119/74 96 06/03/20 12:10 06/03/20 12:10 06/03/20 12:10 06/03/20 12:10 06/03/20 12:10 Doctor's Discharge - Discharge Referrals: SUYAPA ALCAZAR MD [Primary Care Provider] - Follow up as needed
--- NOTE | 2020-06-03 12:35 | ER Document Report ---
ED General - General Chief Complaint: Medical Complaint Stated Complaint: TUBE ISSUES Time Seen by Provider: 06/03/20 12:18 Primary Care Provider: SUYAPA ALCAZAR MD [Primary Care Provider] - Follow up as needed Mode of Arrival: Ambulatory Notes: 69-year-old male with recurrent right pleural effusion presents with wanting it drained. He had a Pleurx catheter placed and was discharged a week ago supposedly with home health to come drain but they did not show up and it is been a week. He is having trouble lying flat and says "it needs to be drained right now. He has no worsening shortness of breath from a few days ago, has no fever or cough, does have a concurrent PE and is on Lovenox. In speaking with Rosendo the associate merchandise planner it seems that home health never called them and has not been set up for drainage at home. TRAVEL OUTSIDE OF THE [place] IN LAST 30 DAYS: No - Related Data Allergies/Adverse Reactions: No Known Allergies Allergy (Unverified 05/20/20 12:11) Past Medical History - General Information source: Patient - Social History Smoking Status: Former Smoker Family History: Reviewed & Not Pertinent - Past Medical History Cardiac Medical History: Reports: Hx Hypercholesterolemia, Hx Hypertension Denies: Hx Coronary Artery Disease, Hx Heart Attack Pulmonary Medical History: Reports: Hx COPD Denies: Hx Asthma, Hx Bronchitis, Hx Pneumonia Neurological Medical History: Denies: Hx Cerebrovascular Accident, Hx Seizures Renal/ Medical History: Denies: Hx End Stage Renal Disease GI Medical History: Denies: Hx Gastroesophageal Reflux Disease Musculoskeletal Medical History: Denies Hx Arthritis Psychiatric Medical History: Denies: Hx Depression Past Surgical History: Reports: Hx Vascular Surgery - L groin - Immunizations Hx Diphtheria, Pertussis, Tetanus Vaccination: Yes Review of Systems - Review of Systems Notes: REVIEW OF SYSTEMS GEN: Denies fever, chills, weight loss ENT: Denies sore throat, nasal discharge, ear pain EYES: Denies blurry vision, eye pain, discharge CV: Denies chest pain, palpitations, edema RESP: Shortness of breath GI: Denies abdominal pain, nausea, vomiting, diarrhea MSK: Denies joint pain/swelling, edema, SKIN: Denies rash, skin lesions LYMPH: Denies swollen glands/lymph nodes NEURO: Denies headache, focal weakness or numbness, dizziness PSYCH: Denies depression, suicidal or homicidal ideation PHYSICAL EXAMINATION General: No acute distress, well-nourished Head: Atraumatic, normocephalic ENT: Mouth normal, oropharynx moist, no exudates or tonsillar enlargement Eyes: Conjunctiva normal, pupils equal, lids normal Neck: No JVD, supple, no guarding CVS: Normal rate, regular rhythm, no murmurs Resp: 2 sutures on the right chest at the site of the clean coiled Pleurx catheter. Decreased breath sounds right base. GI: Nondistended, soft, no tenderness to palpation, no rebound or guarding Ext: No deformities, no edema, normal range of motion in upper and lower ext Back: No CVA or midline TTP Skin: No rash, warm Lymphatic: No lymphadeopathy noted Neuro: Awake, alert. Face symmetric. GCS 15. Physical Exam - Vital signs Vitals: Temp Pulse Resp BP Pulse Ox 97.9 F 96 18 119/74 96 06/03/20 12:10 06/03/20 12:10 06/03/20 12:10 06/03/20 12:10 06/03/20 12:10 Course - Re-evaluation Re-evalutation: 06/03/20 12:34 Pleural effusion, recurrent, mild/moderate with no signs of distress and Pleurx in place. Will attempt to get supplies to drain will discuss with discharge planning. Does not need emergent thoracentesis does not need lab work-up, vitals are normal. 06/03/20 13:03 Changed Pleurx catheter drained 500 cc patient did well. Discharge home will get home health tomorrow and was given a box containing 3 Pleurx kits and inst ructions. I have discussed with the patient there likely diagnosis, aftercare plan, follow-up plans and my usual and customary return precautions. They verbalized understanding of this. - Vital Signs Vital signs: Temp Pulse Resp BP Pulse Ox 97.9 F 96 18 119/74 96 06/03/20 12:10 06/03/20 12:10 06/03/20 12:10 06/03/20 12:10 06/03/20 12:10 Procedures - Thoracentesis Right Time completed: 13:00 Consent obtained: Yes Thoracentesis pre-procedure: Sterile PPE donned Notes: 06/03/20 13:02 Patient presents with Pleurx catheter. Obtain fresh Pleurx drainage kit. Clean the Pleurx catheter site, attached but evacuated drainage container, drained off about 500 cc of bloody pleural fluid. Patient tolerated well. Catheter removed, Pleurx and dressed sterilely with Tegaderm. Discharge - Discharge Clinical Impression: Recurrent right pleural effusion Condition: Good Disposition: HOME, SELF-CARE Instructions: Pleural Effusion ([facility]) Additional Instructions: Home health should call tomorrow to work out getting drainage supplies to your house. Referrals: SUYAPA ALCAZAR MD [Primary Care Provider] - Follow up as needed
[2020-06-03 14:01] VITALS: BP 118/70
== END 2020-06-03 14:01 | disposition home or self-care (01) ==
LOC: ER 12:03
DX: J90 Pleural effusion, not elsewhere classified (principal); I26.99 Other pulmonary embolism without acute cor pulmonale; Z79.01 Long term (current) use of anticoagulants; Z97.8 Presence of other specified devices; J44.9 Chronic obstructive pulmonary disease, unspecified; Z87.891 Personal history of nicotine dependence
CPT/HCPCS: 99285